=== PATIENT | male | born 1930 | race Caucasian/White ===

== ENCOUNTER 2017-10-27 13:19 | Day surgery (SDC) | payer MEDICARE, BC ==
[~2017-10-27] VITALS: Ht 152.4 cm; Wt 58.3 kg
[2017-10-27] VITALS (7 sets, daily range): BP systolic 130–168; BP diastolic 61–77
[2017-10-27] MEDS ORDERED: LORazepam 0.5 MG tablet PO PRN (13:40)
[2017-10-27] MEDS ORDERED: normal saline 1000ml 1,000 ML IV SCH ×2 (13:40→18:25)
[2017-10-27] MEDS ORDERED: diphenhydrAMINE 25mg capsule PO PRN (13:40)
[2017-10-27] MEDS ORDERED: ALB0.5UD IH (14:00)
[2017-10-27] MEDS ORDERED: TIOT18CA3 INH (14:00)
[2017-10-27] MEDS ORDERED: BUDE10.2 INH (14:01)
[2017-10-27] MEDS ORDERED: AMLO10TA PO (14:02)
[2017-10-27] MEDS ORDERED: FURO40TA4 PO (14:03)
[2017-10-27] MEDS ORDERED: POTA10TA10 PO (14:04)
[2017-10-27] MEDS ORDERED: PRED5TAB PO (14:05)
[2017-10-27] MEDS ORDERED: HYDR200T84 PO (14:06)
[2017-10-27] MEDS ORDERED: NAS0.025NS BOTHNARES (14:07)
[2017-10-27] MEDS ORDERED: TERA5CAP4 PO (14:08)
[2017-10-27] MEDS ORDERED: SIMV20TA5 PO ×2 (14:10→14:12)
[2017-10-27] MEDS ORDERED: MULT1TAB74 PO (14:10)
[2017-10-27] MEDS ORDERED: OXYGEN INH (14:12)
[2017-10-27] MEDS ORDERED: iohexol 350MG/ML 100ml bottle IV ONE ×2 (16:20→17:05)
[2017-10-27] MEDS ORDERED: midazolam 2 mg/2 ml injection ONE (16:35)
[2017-10-27] MEDS ORDERED: heparin 1,000unit/ml 10ml vial 10 ML ONE (16:50)
[2017-10-27] MEDS ORDERED: ticagrelor 90mg tablet ONE (16:52)
[2017-10-27] MEDS ORDERED: ondansetron/PF 4mg/2ml inj IV PRN (18:25)
[2017-10-27] MEDS ORDERED: proCHLORperazine 10 MG/2 ml inj IV PRN (18:30)
[2017-10-27] MEDS ORDERED: OXAZEpam 15mg capsule PO PRN (18:30)
[2017-10-27] MEDS ORDERED: nitroGLYCERIN 0.4mg SUBLingual tab SL PRN (18:30)
== END 2017-10-27 20:00 | disposition home or self-care (01) ==
LOC: SSTAY O 13:19
PROVIDERS: ATTEND Internal Medicine Interventional Cardiology
DX: I25.10 Atherosclerotic heart disease of native coronary artery without angina pectoris (principal); I35.0 Nonrheumatic aortic (valve) stenosis; J44.9 Chronic obstructive pulmonary disease, unspecified; I65.23 Occlusion and stenosis of bilateral carotid arteries; M06.9 Rheumatoid arthritis, unspecified; I10 Essential (primary) hypertension; E78.5 Hyperlipidemia, unspecified; K21.9 Gastro-esophageal reflux disease without esophagitis; M19.90 Unspecified osteoarthritis, unspecified site; Z90.89 Acquired absence of other organs; Z87.891 Personal history of nicotine dependence; Z88.2 Allergy status to sulfonamides; Z79.891 Long term (current) use of opiate analgesic; Z86.79 Personal history of other diseases of the circulatory system; Z90.49 Acquired absence of other specified parts of digestive tract; Z72.89 Other problems related to lifestyle; Z86.14 Personal history of Methicillin resistant Staphylococcus aureus infection; Z85.828 Personal history of other malignant neoplasm of skin; Z98.890 Other specified postprocedural states; Z79.899 Other long term (current) drug therapy
CPT/HCPCS: 93005; 93454; 99152; 99153; A6257; C1725; C1760; C1769; C1874; C1894; C9600; J1644; J2250; J7030; Q0163; Q9967; A4620